=== PATIENT | male | born 2005 | race Caucasian/White ===

== ENCOUNTER 2023-04-06 10:48 | Emergency (ER) | payer OTHER, SELFPAY ==
[2023-04-06 10:51] VITALS: BP 140/70; PULSE 75; RESP 16; TEMP 36.5; O2SAT 97; BMI 23.7
--- NOTE | 2023-04-06 11:07 | CRLHL7_ITS ---
For Patients: As a result of the Century Cures Act, medical imaging exams and procedure reports are released immediately into your electronic medical record. You may view this report before your referring provider. If you have questions, please contact your health care provider. INDICATION: Injury. TECHNIQUE: Two views. IMPRESSION: Prominent lateral and greater than anterior periarticular soft tissue swelling. Small ankle joint effusion. No fracture. No malalignment. Dictated by Ari Cheek MD @ 04/06/2023 12:46:07 PM (Electronically Signed)
--- NOTE | 2023-04-06 11:32 | ED_ITS ---
HPI - General Adult General Date Seen: 04/06/23 Chief complaint: Extremity Pain/Injury, Lower Stated complaint: L ankle injury Time Seen by Provider: 04/06/23 11:20 History of Present Illness HPI narrative: This is a pleasant 18-year-old male who presents to ER today for the left ankle injury. He was at a track meet doing a pole vault. 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 He was evaluated at the event by his link trainer operator. He had significant pain and swelling especially over the lateral malleolus of his ankle. He was given crutches as been nonweightbearing since the accident. He presents to the ER today with his mother and father. Other than the ankle pain and swelling he has no injury. No knee pain. No pain in his foot. No numbness or tingling or discoloration in his foot. He has had a few occasional ankle sprains in the past but no serious injuries. No previous ankle surgeries. No other injuries in this episode. Related Data Home Medications Medication Instructions Recorded Confirmed Symbicort 04/06/23 albuterol 04/06/23 cefuroxime axetil 04/06/23 Allergies Allergy/AdvReac Type Severity Reaction Status Date / Time No Known Drug Allergies Allergy Verified 04/06/23 10:55 [facility] Social History Smoking Status: Never smoker Non-prescribed substance use: denies use Exam Narrative: Exam Narrative: Constitutional: Appears well-developed and well-nourished. Alert. Conversant. Non toxic. HENT: Head: Atraumatic. Nose: Nose normal. Mouth/Throat: Oral mucosa is clear and moist. no trismus. Eyes: Conjunctivae normal. EOM normal. Pupils equal, round, and reactive to light. No scleral icterus. Neck: Normal range of motion. Neck supple. No tracheal deviation present. Cardiovascular: Normal rate, regular rhythm. Symmetric DP artery pulses Pulmonary/Chest: Effort normal. No stridor. No respiratory distress. Musculoskeletal: RUE: Normal range of motion. No tenderness. No deformity LUE: Normal range of motion. No tenderness. No deformity RLE: Normal range of motion. No edema. No tenderness. No deformity LLE: Normal range of motion in his hip, knee. He does have some limited plantar flexion/dorsiflexion of the ankle. Marked soft tissue swelling over the lateral malleolus and very mild swelling over the medial malleolus. Tenderness over the lateral malleolus but no bony crepitus. No bruising. No laceration or open fracture. No obvious angulation, deformity, dislocation. No tenderness over the calcaneus, midfoot, forefoot. No tenderness over the proximal 5th metatarsal. Achilles, gastrocnemius nontender. Tibia and fibula nontender. Knee, proximal fibula, tibia, patella are nontender. Neurological: Alert and oriented to person, place, and time. Normal strength. CN II-VII intact. No sensory deficit. GCS eye subscore is 4. GCS verbal subscore is 5. GCS motor subscore is 6. Normal coordination . Intact distal sensory function in the dorsal 1st webspace, sole of the foot, medial and lateral foot. Normal distal cap refill. Intact toe wiggling. Skin: Skin is warm and dry. No rash noted. No pallor. Normal capillary refill. Psychiatric: Normal mood. Normal affect. Const: Vital Signs, click to edit/add: Vital Signs - 24 hr 04/06/23 10:51 Temperature 97.7 F Pulse Rate [Pulse Oximeter] 75 Respiratory Rate 16 Blood Pressure [Ri t Upper Arm] 140/70 H Pulse Oximetry 97 Oxygen Delivery Me thod Room Air Course Vital Signs Vital signs: Initial Vital Signs Temperature 97.7 F 04/06/23 10:51 Temperature Source Temporal Artery Scan 04/06/23 10:51 Pulse Rate 75 04/06/23 10:51 Respiratory Rate 16 04/06/23 10:51 Blood Pressure 140/70 H 04/06/23 10:51 Blood Pressure Mean 93 04/06/23 10:51 Blood Pressure Position Supine 04/06/23 10:51 Pulse Oximetry 97 04/06/23 10:51 Oxygen Delivery Method Room Air 04/06/23 10:51 Vital Signs Temperature 97.7 F 04/06/23 10:51 Pulse Rate 75 04/06/23 10:51 Respiratory Rate 16 04/06/23 10:51 Blood Pressure 140/70 H 04/06/23 10:51 Pulse Oximetry 97 04/06/23 10:51 Oxygen Delivery Method Room Air 04/06/23 10:51 Temperature 97.7 F 04/06/23 10:51 Pulse Rate 75 04/06/23 10:51 Respiratory Rate 16 04/06/23 10:51 Blood Pressure 140/70 H 04/06/23 10:51 Pulse Oximetry 97 04/06/23 10:51 Oxygen Delivery Method Room Air 04/06/23 10:51 Medical Decision Making MDM Narrative Medical decision making narrative: This patient presents for evaluation of left ankle pain. Signs and symptoms are consistent with an ankle sprain. There are no signs of fracture on radiograph. The patients neurovascular status is normal. Knee exam is normal. I don't think this is a Maisonneuve injury or a intraosseous ligament injury based on the location of tenderness. A head to toe trauma exam is otherwise negative; the likelihood of other serious sequelae of trauma (spine, head, chest, abdomen, other extremities, pelvis) is low. Plan is for protected weightbearing, RICE treatment with ice 15-20 minutes every 3 hours, and an bracing with CAM boot. Patient will advance weightbearing and follow-up in 2-4 days. They will begin gentle ROM exercises. Precautions for return reviewed and questions answered. Discussed with his little at like link trainer operator through [facility]. She will follow-up with patient tomorrow and they will arrange plan for follow-up with her orthopedic docking clinic 2 days from now, on Saturday. Imaging Data XR left ankle: Attestation: I have reviewed the pertinent imaging results. My impression: No acute fracture or dislocation Radiologist's impression: IMPRESSION: Prominent lateral and greater than anterior periarticular soft tissue swelling. Small ankle joint effusion. No fracture. No malalignment. Discharge Plan Discharge Clinical Impression: Ankle sprain and strain Patient Disposition: Home, Self-Care Condition: Stable Instructions: Ankle Sprain (ED) Additional Instructions: As we discussed, please limit weight-bearing on your left and and use crutches. Wear the ankle brace when you are up and around to help avoid twisting or further injuring your ankle. Keep her foot elevated when possible. Use ice for 20 minutes every 3-4 hours to help reduce swelling and bruising. Use Tylenol 1000 mg or ibuprofen 600 mg every 6 hours if needed for pain. If you have worsening symptoms, such as severe pain, numbness in your foot, pallor or discoloration, please return to the ER immediately. Please follow-up with your health and safety trainer tomorrow and with the orthopedic doctors for a recheck in 2 days. Prescriptions: No Action cefuroxime axetil Symbicort albuterol Follow Up/Referrals: Provider,Not a Local [Primary Care Provider] - Stand Alone Forms: [email or web address] Info Instructions
== END 2023-04-06 12:38 | disposition home or self-care (01) ==
PROVIDERS: Emergency Provider Emergency Medicine
DX: S93.402A Sprain of unspecified ligament of left ankle, initial encounter (principal); X50.1XXA Overexertion from prolonged static or awkward postures, initial encounter; Y93.57 Activity, non-running track and field events
CPT/HCPCS: 73600; 99283